=== PATIENT | male | born 1960 | race African-American/Black ===

== ENCOUNTER 2018-07-25 09:31 | Emergency (ER) | payer SELFPAY ==
[~2018-07-25] VITALS: Ht 193 cm; Wt 127.0 kg
[2018-07-25 09:37] VITALS: BP 132/80
[2018-07-25] MEDS ORDERED: HYDROcodone/APAP 5/325MG 1 TAB TABLET PO ONE (10:00)
[2018-07-25] MEDS ORDERED: predniSONE 20 MG TABLET PO ONE (10:00)
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
--- NOTE | 2018-07-25 11:12 | RAD ---
Examination: 3 views of the right shoulder HISTORY: History of right shoulder pain for one month COMPARISON: None available FINDINGS: The humerus head is within the glenoid. Mild joint space loss identified in the glenohumeral joint, acromioclavicular joint. There is a well-formed bone density identified superior to the acromioclavicular joint. The visualized right lung grossly appears unremarkable. IMPRESSION: 1. Well-formed bone density identified superior to the acromioclavicular joint could be a large osteophyte or old avulsion fracture. 2. Mild degenerative changes acromioclavicular joint, glenoid humeral joint. Electronically signed by: Choco Carrero MD (07/25/2018 11:09 AM) [facility]
[2018-07-25] MEDS ORDERED: PRED20TA PO (11:17)
[2018-07-25] MEDS ORDERED: HYDR-3164 PO (11:17)
== END 2018-07-25 11:30 | disposition home or self-care (01) ==
LOC: ER 09:31
DX: M25.511 Pain in right shoulder (principal); I10 Essential (primary) hypertension; M19.90 Unspecified osteoarthritis, unspecified site
CPT/HCPCS: 73030; 99283; J7512

== ENCOUNTER 2019-10-04 20:21 | Emergency (ER) | payer SELFPAY ==
[~2019-10-04 20:21] MED LIST: HYDR-3164 PO; PRED20TA PO
== END 2019-10-04 22:05 | disposition left against medical advice (07) ==
LOC: ER 20:21
DX: R51 Headache (principal); Z53.21 Procedure and treatment not carried out due to patient leaving prior to being seen by health care provider